=== PATIENT | male | born 1935 | race Caucasian/White ===

== ENCOUNTER 2017-10-26 06:08 | Day surgery (SDC) | payer MEDICARE ==
[2017-10-26] MEDS ORDERED: NS 1000 ML IV SCH (07:00)
[2017-10-26] MEDS ORDERED: CHLORHEXIDINE GLUCONATE 2 % 1 PACK (2 CLOTHS) TOPICAL SCH (07:00)
[2017-10-26] MEDS ORDERED: ceFAZolin 2 GM PREMIX 50 ML IV SCH (07:00)
[2017-10-26] MEDS ORDERED: MUPIROCIN 2% OINT 1 APPLIC/GM SYR NASAL SCH (07:00)
[2017-10-26] MEDS ORDERED: POVIDONE IODINE 5% (ANTISEPSIS KIT) 4 APPLICATIONS EACH NARE SCH (07:00)
[2017-10-26] MEDS ORDERED: AMLO5TAB2 PO (07:28)
[2017-10-26] MEDS ORDERED: OMEGCAP PO (07:28)
[2017-10-26] MEDS ORDERED: APIX5TAB PO (07:28)
[2017-10-26] MEDS ORDERED: ROSU1TAB8 PO (07:28)
[2017-10-26] MEDS ORDERED: RAPA4CAP PO (07:28)
[2017-10-26] MEDS ORDERED: ISOS60TA PO (07:28)
[2017-10-26] MEDS ORDERED: OMEP40CA2 PO ×2 (07:28)
[2017-10-26] MEDS ORDERED: CENTCHW3 PO (07:28)
[2017-10-26] MEDS ORDERED: CHOL10008 PO (07:28)
[2017-10-26] MEDS ORDERED: BUPR150T3 PO (07:28)
[2017-10-26] MEDS ORDERED: MAGN100T2 PO (07:28)
[2017-10-26] MEDS ORDERED: ASPI1TAB57 PO (07:28)
[2017-10-26] MEDS ORDERED: SAW450CA2 PO (07:28)
[2017-10-26] MEDS ORDERED: VITA200C3 PO (07:28)
[2017-10-26] MEDS ORDERED: DOCU50CA5 PO (07:28)
[2017-10-26] MEDS ORDERED: FEXO15TA PO (07:28)
[2017-10-26] MEDS ORDERED: prevagen PO (07:28)
[2017-10-26] MEDS ORDERED: ALLO300T2 PO (07:28)
[2017-10-26] MEDS ORDERED: ST.300CA PO (07:28)
--- NOTE | 2017-10-26 08:47 | MP ---
cc: BLESSING DAVEY M.D. DATE OF SURGERY 10/26/2017 PREOPERATIVE DIAGNOSIS Repetitive syncope with chronic atrial fibrillation and suspicion for possible arrhythmogenic cause. POSTOPERATIVE DIAGNOSIS Repetitive syncope with chronic atrial fibrillation and suspicion for possible arrhythmogenic cause. PROCEDURE Insertion of insertable loop recorder. DESCRIPTION OF PROCEDURE The patient was brought into the DOC Unit in a fasting state. He was prepped and draped in sterile fashion using 1% lidocaine. A Medtronic insertable loop recorder was inserted without difficulty and Steri-Strips and a dressing were applied. There was no bleeding. DEVICE 500 Luchadores Reveal LINQ model [id number]. Serial number [id number]. The R-wave detected was 0.035 mV. The device is programmed to detect bradycardia, pauses or tachycardia that could be the cause of syncope. PLAN The patient will be discharged home this morning. Blessing Davey MD VEW/SSB /8:34 AM /8:36 AM
== END 2017-10-26 09:17 | disposition home or self-care (01) ==
LOC: HDOC 06:08 → HDIC 06:11 → HDOC 09:00
PROVIDERS: ATTEND Internal Medicine Cardiovascular Disease
DX: R55 Syncope and collapse (principal); I48.2 Chronic atrial fibrillation; I20.9 Angina pectoris, unspecified; I10 Essential (primary) hypertension; R42 Dizziness and giddiness; I65.29 Occlusion and stenosis of unspecified carotid artery; I11.9 Hypertensive heart disease without heart failure; I47.2 Ventricular tachycardia; E78.5 Hyperlipidemia, unspecified; Z79.01 Long term (current) use of anticoagulants
CPT/HCPCS: 33282; C1764; J7030

== ENCOUNTER 2017-12-09 06:57 | Day surgery (SDC) | payer MEDICARE ==
[2017-12-09] VITALS (10 sets, daily range): BP systolic 130–170; BP diastolic 70–95; PULSE 59–92; RESP 18–20; TEMP 97.6–98.6; O2SAT 94–96
[~2017-12-09] VITALS: Ht 182.9 cm; Wt 120.1 kg
[~2017-12-09 06:57] MED LIST: ALLO300T2 PO; AMLO5TAB2 PO; APIX5TAB PO; ASPI1TAB57 PO; BUPR150T3 PO; CENTCHW3 PO; CHOL10008 PO; DOCU50CA5 PO; FEXO15TA PO; ISOS60TA PO; MAGN100T2 PO; OMEGCAP PO; OMEP40CA2 PO; RAPA4CAP PO; ROSU1TAB8 PO; SAW450CA2 PO; ST.300CA PO; VITA200C3 PO; prevagen PO
[2017-12-09 08:37] LABS: PROTHROMBIN TIME - PATIENT 10.1 SEC (9.8-11.6)
[2017-12-09 08:44] LABS: BICARBONATE 26.9 MEQ/L (21.0-32.0); CALCIUM 9.2 MG/DL (8.5-10.1); CREATININE 1.2 MG/DL (0.60-1.30)
[2017-12-09] MEDS ORDERED: SODIUM CHLORID 0.9% 500 ML IV PRN (08:45)
[2017-12-09] MEDS ORDERED: Hold AM Insulin & AM Hypoglycemic medications in diabetic patients PRN (08:45)
[2017-12-09] MEDS ORDERED: NO Heparin, Lovenox, Coumadin at least 12 hours prior to procedure. PRN (08:45)
[2017-12-09] MEDS ORDERED: MUPIROCIN 2% OINT 1 APPLIC/GM SYR NASAL SCH (08:45)
[2017-12-09] MEDS ORDERED: ceFAZolin 2 GM PREMIX 50 ML IV SCH (08:45)
[2017-12-09] MEDS ORDERED: CHLORHEXIDINE GLUCONATE 2 % 1 PACK (2 CLOTHS) TOPICAL SCH (08:45)
[2017-12-09] MEDS ORDERED: CHLORHEXIDINE GLUCONATE 2 % 1 PACK (2 CLOTHS) TOPICAL PRN (08:45)
[2017-12-09] MEDS ORDERED: VANCOMYCIN 1000 MG/NS 250 ML IV SCH ×2 (08:45)
[2017-12-09] MEDS ORDERED: LORazepam 1 MG TAB SL SCH (08:45)
[2017-12-09] MEDS ORDERED: METOPROLOL TARTRATE 25 MG TAB PO PRN (08:45)
[2017-12-09] MEDS ORDERED: POVIDONE IODINE 5% (ANTISEPSIS KIT) 4 APPLICATIONS EACH NARE SCH (08:45)
[2017-12-09] MEDS ORDERED: POVIDONE IODINE 5% (ANTISEPSIS KIT) 4 APPLICATIONS EACH NARE PRN (08:45)
[2017-12-09] MEDS ORDERED: LACTATED RINGER'S 1000 ML IV PRN (08:45)
[2017-12-09] MEDS: NS 1000 ML IV SCH (09:00)
[2017-12-09] MEDS ORDERED: PROPOFOL 200 MG/20 ML AMP IV ONE (12:00)
[2017-12-09] MEDS ORDERED: LIDOCAINE HCL 1% PF 5 ML SYRINGE OTHER ONE (12:00)
[2017-12-09] MEDS ORDERED: MIDAZOLAM HCL 2 MG/2 ML VIAL ONE (16:07)
[2017-12-09] MEDS ORDERED: LIDOCAINE HCL 2% 50 ML VIAL ONE (16:21)
[2017-12-09] MEDS ORDERED: VANCOMYCIN 500 MG VIAL ONE (16:21)
[2017-12-09] MEDS ORDERED: HEPARIN SODIUM - IV 10,000 UNITS/10 ML VIAL ONE (16:23)
[2017-12-09 17:18] LABS: AUTOMATED NEUTROPHIL # 4.1 TH/MM3 (1.8-7.7); BASOPHIL # 0.1 TH/MM3 (0-0.2); BASOPHIL % 0.9 % (0.0-2.0); EOSINOPHIL # 0.3 TH/MM3 (0-0.4); EOSINOPHIL % 5.8 % (0.0-4.0); HEMOGLOBIN 13.8 GM/DL (13.0-17.0); LYMPH % 15.2 % (9.0-44.0); LYMPHOCYTE # 0.9 TH/MM3 (1.0-4.8); MEAN CELL VOLUME 96.2 FL (80.0-100.0); MEAN CORPUSCULAR HEMOGLOBIN 33.2 PG (27.0-34.0); MEAN CORPUSCULAR HGB CONC 34.5 % (32.0-36.0); MEAN PLATELET VOLUME 10.7 FL (7.0-11.0); MONO % 7.7 % (0.0-8.0); MONOCYTE # 0.4 TH/MM3 (0-0.9); NEUT % 70.4 % (16.0-70.0); PLATELET COUNT 109 TH/MM3 (150-450); RED BLOOD COUNT 4.16 MIL/MM3 (4.50-5.90); RED CELL DISTRIBUTION WIDTH 13.8 % (11.6-17.2); WHITE BLOOD COUNT 5.8 TH/MM3 (4.0-11.0)
--- NOTE | 2017-12-09 17:44 | CATHPROC ---
Patient Name: SONAM PEREZ Study #: [id number] Initial MD: Mikki Gu Date of : 1935 Study Date: 12/09/2017 Cardiac Catheterization Report 12/09/2017 5:44:01 PM Financial #: [id number] 1 of 8 Patient Name: SONAM PEREZ Study #: [id number] Initial MD: Mikki Gu Date of : 1935 Study Date: 12/09/2017 Entire Case Report Patient Information Patient Name SONAM PEREZ Date of 1935 Age 81 years Financial # [id number] Gender M AlternateID Lab Number 2 Room Number DC07 Height (in) 60.0 Height (cm) 152.4 BSA 2.12 Weight (lbs) 269.1 Weight (kg) 122.3 Patient Address/Phone Number Home Address [facility] Home Phone Number [phone] [facility] [address] Study Information Study Number Admission Scheduled Start Study Start [id number] Dec 09 2017 6:57AM 12/09/2017 Dec 09 2017 1:28PM [place] [facility] Cardiac Pacer/ICD Admit Source Facility Department Other [facility] - Urinalysis Technician Physician and Clinical Staff Initial Mikki Mohan Associate Accountant Kai CoyneRT(R) Other Anesthesia, FOREIGN SERVICE OFFICER Recorder Ana Mcgarry,RN Recorder Tash Mancilla,KARLENE Scrub Isabella Diallo,RT(R) TECH2 12/09/2017 5:44:01 PM Financial #: [id number] 2 of 8 Patient Name: SONAM PEREZ Study #: [id number] Initial MD: Mikki Gu Date of : 1935 Study Date: 12/09/2017 Equipment Time Sulky Driver Description Size Mfg Part Number Used/Scraped BIOSENSE MCKENZIE [id number] 13:40 SET, TUBING COOLFLOW * Used INC. *[id number] 13:39 COOK/PACER DILATOR SET (MICRA) FR8-12 Used *[id number] WIRE, GUIDE AMPLATZ STIFF [id number] 13:39 COOK/PACER 3MMJ Used 180CM *[id number] 13:39 MEDLINE INDUSTRIES PACK, CCL CUSTOM * Used *[id number] 13:39 MEDLINE PACER ROA, LIMB * 2530 *[id number] Used [id number] 13:39 NAMIC TUBING, HIGH PRESSURE 20" 20" Used *[id number] [id number] 13:39 NAMIC TUBING, HIGH PRESSURE 20" 20" Used *[id number] 13:39 NYCOMED OMNIPAQUE, 300 MG, 50ML 50ML [id number] Used SUTURE, 0 ETHIBOND [CT1] (CX21D), 8pk [id number] 13:39 H[employer]ILTON [employer] BLANKET,WARM AIR CCL * Used *[id number] 13:39 VITATRON MEDTRONIC MONITOR, PACEMAKER\\ICD 07043U Used SYSTEM, TRANS-CATHETER [id number] 13:39 VITATRON MEDTRONIC Used PACING (MICRA) *[id number] Equipment Model, Serial, Lot Number and Expiration Data Description Model Number Serial Number Lot Number Expiration Date SYSTEM, TRANS-CATHETER PACING [id number] 01-20-2019 (MICRA) Insurance Information Insurance Payor Medicare Third Democrat Third Democrat Number [employer] UHCMCR MEDICARE History: Current Medications Medication Dosage/Unit Route Frequency Last Date/Time Taken Beta Vinay Statins (any) ASA Imdur ELIQUIS History: Allergies Allergy Reaction No Known Allergies 12/09/2017 5:44:01 PM Financial #: [id number] Patient Name: SONAM PEREZ Study #: [id number] Initial MD: Mikki Gu Date of : 1935 Study Date: 8 History: Risk Factors Family History of Hypertension Dyslipidemia Premature CAD Yes Yes Yes Prior PCI Prior PCIDate Prior CABG Prior CABGDate Yes 03/28/2010 Yes 08/30/1999 Cerebrovascular Peripheral Artery Chronic Lung On Dialysis Diabetes Disease Disease Disease No No No Yes Yes History: Arrhythmias Selection Items Non-sustained VT History: Other Disease Selection Items Cancer HTN Labs Glucose (mg/dl) BUN (mg/dl) Creatinine (mg/dl) BUN:Creatinine (1:x) 74.00-106.00 7.00-18.00 0.50-1.30 10.00-20.00 123 16 1.2 13.3 Na (meq/l) K (meq/l) Cl (meq/l) CO2 (mmol/L) Ca (mg/dl) 136.00-145.00 3.50-5.10 98.00-107.00 21.00-32.00 8.50-10.10 142 3.8 109 26.9 9.2 PT (sec) PTT (sec) INR (PTT:PT) 9.80-11.60 24.30-30.10 0.90-1.10 10.1 26.4 1 Medication Medication Total Dose (Bolus/Oral) Medication Total Dosage/Unit 2% XYLOCAINE 50 mL HEPARIN 2000 units Medications (Bolus/Oral) Medication Time Given Dosage/Unit Administered By Reason 2% XYLOCAINE 12/09/2017 4:49:24 PM 50 mL Mikki Gu 50 mL 2% XYLOCAINE given in lab by Mikki Gu via Subcutaneous. Ordered by Mikki Gu. HEPARIN 12/09/2017 4:53:18 PM 2000 units Anesthesia, FOREIGN SERVICE OFFICER As per physicians v erbal order 2000 units HEPARIN given in lab by Anesthesia, FOREIGN SERVICE OFFICER via Peripheral IV. Ordered by Mikki Gu. Reas on: As per physicians verbal order. 12/09/2017 5:44:01 PM Financial #: [id number] 4 of 8 Patient Name: SONAM PEREZ Study #: [id number] Initial MD: Mikki Gu Date of : 1935 Study Date: 12/09/2017 Initial Case Assessment Cardiovascular HR NIBP Chest Pain 75 167/86 0 Edema Present Skin color Skin None Normal Warm Dry Circulatory - Right Pulses Dorsalis Pedis 1 Scale (0,1,2,3,4,d) Circulatory - Left Pulses Dorsalis Pedis 1 Scale (0,1,2,3,4,d) Circulatory - Lower Extremities Color Lower Right Color Lower Left Normal Normal Neurological State Oriented to time-place- Alert Moves all extremities person Respiration - General Respiration Rate SpO2 (%) (B/min) 20 100 12/09/2017 5:44:01 PM Financial #: [id number] 5 of 8 Patient Name: SONAM PEREZ Study #: [id number] Initial MD: Mikki Gu Date of : 1935 Study Date: 12/09/2017 Final Case Assessment Cardiovascular HR NIBP 63 155/94 Edema Present Skin color Skin None Normal Warm Dry Circulatory - Right Pulses Dorsalis Pedis 1 Scale (0,1,2,3,4,d) Circulatory - Left Pulses Dorsalis Pedis 1 Scale (0,1,2,3,4,d) Circulatory - Lower Extremities Color Lower Right Color Lower Left Normal Normal Neurological State Oriented to time-place- Alert Moves all extremities person Respiration - General Respiration Rate SpO2 (%) (B/min) 19 100 Chronological Log Time Study Chronological Log 16:15:17 Patient arrived via Bed. 16:15:21 Patient Name, D.O.B, / Armband Verified By R.N. 16:15:24 Consent signed by the physician and the patient and verified by the Urinalysis Technician staff. 16:15:28 Pre-op and post- op instructions given; patient acknowledges understanding of instructions. 16:15:47 Anesthesia at bedside. Assumes care of patient. 16:15:54 Patient has been NPO for More than 6Hrs. 16:16:38 History and physical on the chart. 16:17:32 Verbal Stimulation=2 Physical Stimulation=2 Airway=2 Respiration=2 TOTAL=8. (0=absent, 1=li mited, 2=present) Skin Breakdown- bilateral knee scabbed abrasions right > left. Rt knee also reddened and with f ading bruise 16:18:01 surrounding abrasion scab. 12/09/2017 5:44:01 PM Financial #: [id number] 6 of 8 Patient Name: SONAM PEREZ Study #: [id number] Initial MD: Mikki Gu Date of : 1935 Study Date: 12/09/2017 16:18:57 Patient Warmer Placed on the Table. 16:18:59 Disposable Defibrillator Pads Placed On Patient. 16:19:00 Clarissa Prominences Protected 16:19:01 Disposable Defibrillator Pads Placed On Patient. 16:19:06 A # 20 IV was noted in the Antecubital (right). Grade = 0 0.9%NaCl @ KVO. 16:21:12 Table restraints applied according to hospital policy 16:26:03 A # 20 IV was noted in the Wrist (right). Grade = 0 0.9% NaCl @ KVO Assessment: Initial Case, HR=75 BPM, BODZ=999/86 mmhg, Chest Pain=0, Edema=None, Color=Normal, Skin = Warm, Dry Right Pulses: Andi Ped=1 Left Pulses: Andi Ped=1 16:26:49 Lower Right Extremities: Color=Normal Lower Left Extremities: Color=Normal Neurological: State=Alert, Ox3, ARELLANO Respiration: Resp=20 B/min, EcX7=129 % 16:32:59 Bilateral groins prepped with 2% chlorhexidine, and draped after a 3 minute waiting time. 16:33:43 [facility] Spoke with Kayla in lab about obtaining them. 16:35:19 paged 16:35:50 Dr. Gu notified about CBC. To be drawn in EP lab. 16:42:27 Reference ECG taken 16:45:56 MD arrived. Time Out. Correct patient, procedure, procedure equipment, site and side verified with physicia n present. Time 16:48:36 concurred by MD, individual staff and FOREIGN SERVICE OFFICER. Time Out #2 - Consents verified, patient in correct position, all results are labled and displa yed, safety precautions 16:48:57 taken, antibiotics administered. Time out concurred by MD, individual staff and FOREIGN SERVICE OFFICER in procedu re 16:48:58 Case Start 16:49:24 50 mL 2% XYLOCAINE given in lab by Mikki Gu via Subcutaneous. Ordered by Mikki Gu . 16:49:46 Vascular access was obtained in the Fem Vein (right). 16:51:06 Amplatz wire inserted. Figure 8 suture applied 16:52:15 Dilated with 12, followed by 16 and finally 20. 2000 units HEPARIN given in lab by Anesthesia, FOREIGN SERVICE OFFICER via Peripheral IV. Ordered by Mikki Gu . Reason: As per 16:53:18 physicians verbal order. 16:55:03 A Micra set sheath 28FR advanced into the fem vein (right) using Modified Seldinger techniq ue. 16:55:03 A DILATOR SET (MICRA) FR8-12 was advanced into the Fem Vein (right) using the Modified Seld flakito technique. 16:56:22 A CBC was drawn and sent to lab. 16:58:13 Heparinized drip line connected to the micra sheath. 16:59:32 Micra inserted via Fem Vein (right). 17:06:30 Testing the device. 17:11:05 Catheter(s) removed without difficulty 17:11:17 Sheath removed; pressure applied to access site. 17:14:24 Left chest prepped with 2% chlorhexidine, and draped after a 3 min. waiting time for loop r ecorder removal. 12/09/2017 5:44:01 PM Financial #: [id number] 7 of 8 Patient Name: SONAM PEREZ Study #: [id number] Initial MD: Mikki Gu Date of : 1935 Study Date: 12/09/2017 17:18:25 Surgical Incision Made. 17:19:35 A device was explanted. 17:20:19 The pocket was closed. 17:22:55 Steri-strips and a sterile dressing applied to site. 17:24:01 Case End Assessment: Final Case, HR=63 BPM, EMCI=657/94 mmhg, Edema=None, Color=Normal, Skin = Warm, Dr y Right Pulses: Andi Ped=1 Left Pulses: Andi Ped=1 17:25:08 Lower Right Extremities: Color=Normal Lower Left Extremities: Color=Normal Neurological: State=Alert, Ox3, ARELLANO Respiration: Resp=19 B/min, YjU7=100 % 17:26:00 No case complications noted. 17:26:01 Cine recording checked. 17:26:04 Holding Area notified of successful intervention. Spoke with Jaimie. Pt to go to [facility]. 17:34:19 CICU notified of successful intervention. Spoke with Aidee. 17:35:00 Bedside Report will be given. 17:35:05 Patient moved to stretcher Pt transported to CICU on R/A in stable condition with RN and tech accompanying. Rt groin site soft, dressing dry and 17:37:00 intact. End Study - Contrast Media Used In Study Contrast Total Opened (mL) Total Used (mL) Total Wasted (mL) Unspecified 0 0 0 End Study - Maximum Contrast Load Max Contrast Load (mL) 509.7 End Study - Radiation Exposure Fluoro Time (minutes) 3.0 End Study - Patient Disposition Complications Transferred To Telemetry Bed 12/09/2017 5:44:01 PM Financial #: [id number]
[2017-12-09] MEDS ORDERED: ONDANSETRON HCL 4 MG/2 ML VIAL IV PUSH PRN (17:45)
[2017-12-09] MEDS ORDERED: oxyCODONE/ACETAMINOPHEN 5 MG/325 MG TAB PO PRN ×2 (17:45)
[2017-12-09] MEDS ORDERED: amLODIPine BESYLATE 5 MG TAB PO SCH (17:45)
[2017-12-09] MEDS ORDERED: LIDOCAINE HCL 1% 50 ML VIAL INFIL PRN (17:45)
[2017-12-09] MEDS ORDERED: ATROPINE SULFATE 1 MG/ML VIAL IV PUSH PRN (17:45)
[2017-12-09] MEDS ORDERED: LORazepam 2 MG/ML VIAL IV PUSH PRN (17:45)
[2017-12-09] MEDS ORDERED: SODIUM CHLOR 0.9% 250 ML INJ 250 ML IV PRN (17:45)
[2017-12-09] MEDS ORDERED: BACITRACIN OINT 0.9 GM PKT TOP ONE (17:45)
[2017-12-09] MEDS: DILTIAZEM-CD 240 MG CAP ER PO SCH (20:28)
[2017-12-09] MEDS: APIXABAN 5 MG TABLET PO SCH (20:28)
[2017-12-09] MEDS: PANTOPRAZOLE SOD 40 MG DELAYED RELEASE TAB PO SCH (20:28)
[2017-12-09] MEDS ORDERED: APIXABAN 5 MG TABLET PO SCH (21:00)
[2017-12-10 00:34] VITALS: BP 161/83; PULSE 64; TEMP 98.3; O2SAT 93
[2017-12-10 04:21] VITALS: BP 153/77; PULSE 76; TEMP 98.5; O2SAT 96
[2017-12-10 04:49] VITALS: PULSE 84
--- NOTE | 2017-12-10 05:54 | MB ---
cc: BLESSING CLARK M.D., HANSCY M.D. DATE OF CONSULTATION 12/09/2017 HISTORY OF PRESENT ILLNESS Mr. Moreno is an 81-year-old gentleman with history of atrial fibrillation, coronary artery disease, coronary artery bypass graft, recurrent episodes of syncope and near-syncope referred by Dr. Clark for evaluation for pacer insertion and loop recorder. The chart was reviewed. The patient was evaluated. ALLERGIES None. SOCIAL HISTORY The history is negative for smoking and drinking. FAMILY HISTORY Noncontributory to his current medical condition. MEDICATIONS 1. Adeola 100 mg per day. 2. Allopurinol 300 mg per day. 3. Amlodipine 5 mg per day. 4. Aspirin. 5. Carbilevodopa. 6. Eliquis 5 mg twice a day. 7. Nitro. 8. Prevagen. 9. Lovastatin 20 mg a day. 10. Multivitamin. REVIEW OF SYSTEMS He refers some palpitations and dizziness but no chest pain or chest discomfort. PHYSICAL EXAM GENERAL: Alert, fully oriented. VITAL SIGNS: Blood pressure on evaluation was around 160/80, pulse 190, respiratory rate 20. LUNGS: Ventilated. CARDIOVASCULAR: S1-S2, irregular. No gallop. ABDOMEN: Obese. No mass or bruit. EXTREMITIES: No edema. ELECTROCARDIOGRAM Atrial fibrillation, diffuse ST changes. The rate is controlled. LABORATORY DATA Hemoglobin 13.8, white blood cells 5.8, potassium 3.8, creatinine 1.20. INR 1.0. ASSESSMENT AND RECOMMENDATIONS Mr. Gibson has an over 4.8 second pause on loop recorder. He has atrial fibrillation, heart rate difficult to control. He has episodes of near-syncope associated with those pauses. He is going to need a permanent pacemaker. I discussed the implantation of a Micra with him. It is a leadless pacemaker. The risks, the nature and the benefit of the procedure are clearly stated to him. The risks include pneumothorax, cardiac perforation, stroke and even . The patient understood and agreed to proceed. The procedure will be performed during the hospitalization. Also the loop recorder will be removed. Mikki Gu MD HS/SSB /5:43 PM 5:37 AM
[2017-12-10 06:54] LABS: PROTHROMBIN TIME - PATIENT 10.6 SEC (9.8-11.6)
[2017-12-10] MEDS ORDERED: CEPH-460 PO (08:02)
--- NOTE | 2017-12-10 08:07 | PD.CARD.PN ---
Subjective Subjective Remarks Feels okay. Objective Medications Current Medications Medications (Trade) Dose Ordered Sig/Magaly Route Start Time Stop Time Status Last Admin Miscellaneous Information Hold AM Insulin & ... UNSCH PRN .XX 12/09/17 08:45 12/13/17 08:44 Miscellaneous Information NO Heparin, Loven... UNSCH PRN .XX 12/09/17 08:45 12/13/17 08:44 Sodium Chloride 1,000 ml @ 30 mls/hr Q24H IV 12/09/17 09:00 Cefazolin Sodium/ Dextrose 50 ml @ 100 mls/hr BANQUET [employer] SERVER IV 12/09/17 08:45 12/12/17 08:44 Vancomycin HCl 1000 mg/Sodium Chloride 250 ml @ 250 mls/hr [employer] IV 12/09/17 08:45 12/12/17 08:44 (Ativan) 1 mg [employer] SL 12/09/17 08:45 12/12/17 08:44 (Betadine 5% Antisepsis Kit) 2 applic [employer]ER EACH NARE 12/09/17 08:45 12/12/17 08:44 (Bactroban Nasal 2% Oint) 1 applic [employer] NASAL 12/09/17 08:45 12/12/17 08:44 (Chlorhexidine 2% Cloth) 3 pack [employer] TOPICAL 12/09/17 08:45 12/12/17 08:44 (Percocet 5-325 Mg) 1 tab Q4H PRN PO 12/09/17 17:45 (Percocet 5-325 Mg) 2 tab Q4H PRN PO 12/09/17 17:45 (Ativan Inj) 0.5 mg UNSCH PRN IV PUSH 12/09/17 17:45 12/10/17 17:44 (Atropine Inj) 0.5 mg UNSCH PRN IV PUSH 12/09/17 17:45 Sodium Chloride 250 ml @ 500 mls/hr ONCE PRN IV 12/09/17 17:45 12/10/17 17:44 (Zofran Inj) 4 mg Q4H PRN IV PUSH 12/09/17 17:45 (Xylocaine 1% Inj (50 ml)) 10 ml UNSCH PRN INFIL 12/09/17 17:45 12/10/17 17:44 (Zyloprim) 300 mg DAILY PO 12/10/17 09:00 (Eliquis) 5 mg BID PO 12/09/17 21:00 12/09/17 20:28 (Ecotrin Ec) 81 mg DAILY PO 12/10/17 09:00 (Wellbutrin Sr) 150 mg DAILY PO 12/10/17 09:00 (Vitamin D3) 1,000 units DAILY PO 12/10/17 09:00 (Imdur) 60 mg DAILY PO 12/10/17 09:00 (Claritin) 10 mg DAILY PO 12/10/17 09:00 (Theragran M Tab) 1 tab DAILY PO 12/10/17 09:00 (Protonix) 40 mg BID PO 12/09/17 21:00 12/09/17 20:28 (Lipitor) 40 mg DAILY PO 12/10/17 09:00 (Flomax) 4 mg DAILY PO 12/10/17 09:00 (Vitamin E) 400 units DAILY PO 12/10/17 09:00 (Cardizem Cd) 240 mg DAILY PO 12/09/17 18:00 12/09/17 20:28 Vital Signs / I&O Vital Signs Date Time Temp Pulse Resp B/P (MAP) Pulse Ox O2 Delivery O2 Flow Rate FiO2 12/10/17 04:49 84 12/10/17 04:21 98.5 76 153/77 (102) 96 12/10/17 00:34 98.3 64 161/83 (109) 93 12/09/17 23:30 59 12/09/17 22:00 92 12/09/17 21:00 70 12/09/17 20:00 97.6 59 170/95 (120) 95 12/09/17 20:00 75 12/09/17 19:00 70 12/09/17 18:19 65 12/09/17 18:15 65 20 142/88 (106) 95 12/09/17 18:03 98.6 66 20 140/78 (98) 96 12/09/17 17:45 68 20 130/80 (97) 95 I/O 12/09/17 12/09/17 12/09/1718 12/10/17 12/10/17 07:00 15:00 23:00 07:00 15:00 23:00 Intake Total 240 ml 240 ml Balance 240 ml 240 ml Intake Oral 240 ml 240 ml # Voids 5 Physical Exam GENERAL: Well-nourished, well-developed patient. SKIN: Warm and dry. Groin sites soft with no erythema or drainage. Stitch removed. HEAD: Normocephalic. EYES: No scleral icterus. No injection or drainage. NECK: Supple, trachea midline. No JVD or lymphadenopathy. CARDIOVASCULAR: Regular rate and rhythm without murmurs, gallops, or rubs. RESPIRATORY: Breath sounds equal bilaterally. No accessory muscle use. GASTROINTESTINAL: Abdomen soft, non-tender, nondistended. EXTREMITIES: No cyanosis, or edema. NEUROLOGICAL: Awake, alert, and oriented x 3. Non-focal. Laboratory Laboratory Tests Test 12/09/17 16:50 12/10/17 06:23 White Blood Count 5.8 TH/MM3 Red Blood Count 4.16 MIL/MM3 Hemoglobin 13.8 GM/DL Hematocrit 40.0 % Mean Corpuscular Volume 96.2 FL Mean Corpuscular Hemoglobin 33.2 PG Mean Corpuscular Hemoglobin Concent 34.5 % Red Cell Distribution Width 13.8 % Platelet Count 109 TH/MM3 Mean Platelet Volume 10.7 FL Neutrophils (%) (Auto) 70.4 % Lymphocytes (%) (Auto) 15.2 % Monocytes (%) (Auto) 7.7 % Eosinophils (%) (Auto) 5.8 % Basophils (%) (Auto) 0.9 % Neutrophils # (Auto) 4.1 TH/MM3 Lymphocytes # (Auto) 0.9 TH/MM3 Monocytes # (Auto) 0.4 TH/MM3 Eosinophils # (Auto) 0.3 TH/MM3 Basophils # (Auto) 0.1 TH/MM3 CBC Comment DIFF FINAL Differential Comment Prothrombin Time 10.6 SEC Prothromb Time International Ratio 1.0 RATIO Activated Partial Thromboplast Time 26.8 SEC Assessment and Plan Problem List: (1) Symptomatic bradycardia ICD Codes: R00.1 - Bradycardia, unspecified Plan: 4.8 second pause documented on loop recorder. Stable status post Micra permanent pacemaker implantation. (2) S/P cardiac pacemaker procedure ICD Codes: Z95.0 - Presence of cardiac pacemaker Plan: Pacing appropriately, discharge home, follow-up with Dr. Gu in 2 weeks per my discussion with him. Jacque Blackburn Dec 10, 2017 08:07
[2017-12-10 08:15] VITALS: BP 159/90; PULSE 85; RESP 18; TEMP 98; O2SAT 85
[2017-12-10] MEDS ORDERED: buPROPion HCL 150 MG SUSTAINED RELEASE TAB PO SCH (09:00)
[2017-12-10] MEDS ORDERED: NON-FORMULARY DRUG (Saw Palmetto (Serenoa Repens) 450 MG) PO SCH (09:00)
[2017-12-10] MEDS ORDERED: TAMSULOSIN HCL 0.4 MG CAP PO SCH ×2 (09:00→09:15)
[2017-12-10] MEDS ORDERED: ASPIRIN EC 81 MG TABEC PO SCH (09:00)
[2017-12-10] MEDS ORDERED: ATORVASTATIN 40 MG TAB PO SCH (09:00)
[2017-12-10] MEDS ORDERED: VITAMIN E 400 UNIT CAP PO SCH (09:00)
[2017-12-10] MEDS ORDERED: ISOSORBIDE MONONITRATE 60 MG TAB PO SCH (09:00)
[2017-12-10] MEDS ORDERED: LORATADINE 10 MG TAB PO SCH (09:00)
[2017-12-10] MEDS ORDERED: MULTIVITAMINS/MINERALS THERAPEUTIC TAB PO SCH (09:00)
[2017-12-10] MEDS ORDERED: NON-FORMULARY DRUG (Fish Oil-Cholecalciferol (Omega-3 Fish Oil/Vitamin) 1 CAP) PO SCH (09:00)
[2017-12-10] MEDS ORDERED: CHOLECALCIFEROL (VIT D3) 1000 UNIT TAB PO SCH (09:00)
[2017-12-10] MEDS ORDERED: ALLOPURINOL 300 MG TAB PO SCH (09:00)
[2017-12-10] MEDS: NS 1000 ML IV SCH (09:00)
[2017-12-10] MEDS: DILTIAZEM-CD 240 MG CAP ER PO SCH (09:01)
[2017-12-10] MEDS: PANTOPRAZOLE SOD 40 MG DELAYED RELEASE TAB PO SCH (09:01)
[2017-12-10] MEDS: APIXABAN 5 MG TABLET PO SCH (09:01)
--- NOTE | 2017-12-10 13:35 | MP ---
cc: CATHY DELACRUZ DATE OF SURGERY 12/09/2017 PROCEDURE PERFORMED 1. Single chamber leadless permanent pacemaker insertion 2. Loop recorder removal. INDICATIONS Mr. Gibson is an 81-year-old gentleman with a history of atrial fibrillation, coronary artery disease, coronary bypass grafting, symptomatic bradycardia, episode of near syncope 4.8 seconds pause referred by Dr. Clark for permanent pacemaker insertion. The risks, the nature and the benefit of the procedure are clearly stated to him. The risks include pneumothorax, cardiac perforation, stroke, need for open heart surgery and even . The patient understood and agreed to proceed. PROCEDURE After writing informed consent was obtained, the patient was brought to the EP Lab where he was prepped and draped in the usual sterile fashion. Conscious sedation was initiated and maintained throughout the procedure by anesthesiologist. Once sedation verified, the right inguinal area was anesthetized with 2% Xylocaine. Using modified Seldinger technique, the right femoral vein was cannulated on one occasion and one guidewire was advanced. A stiff Amplatz was advanced all the way to the superior vena cava. Then a centimeter incision was made at the entry point. Then the area was progressively dilated using an 8, 12, 16 and 20 Angolan dilator. Then the myocardial delivery sheath was advanced and placed at the level of the right atrium. Then the dilator was removed and the myocardial image system was advanced at the middle of the right atrium. At that point, the sheath was pulled back all the way to the inferior vena cava. The delivery system elevated was deflected and placed at the septal level. It was subsequently delivered after multiple evaluations. At that point, the threshold and impedance was measured on multiple occasions and there were adequate numbers. Then, a COIN WRAPPING MACHINE OPERATOR showed good contractility of the legs of the device. Subsequently, the was released. After adequate pacing and sensing thresholds obtained, the sheath and the dilator and the delivery system were removed. I did place a 2-0 Ethibond suture at the exit point in a [id number] to prevent back-bleeding. That was tied. Hemostasis was performed. No incident report. At that point, I did proceed with a loop recorder removal. The left parasternal area was anesthetized with 2% Xylocaine. Using a #11 scalpel, an 11 centimeter incision was made. Subsequently, the loop was removed. The area was copiously irrigated using antibiotic solution. The border was reapproximated using Dermabond and Steri-Strips. No incident report. The patient tolerated procedure. Blood loss minimal. 1. Implanted Hardware: The implanted permanent pacemaker is a Medtronic model number [id number], serial number [id number]. 2. Threshold: The right ventricular pacing threshold in the bipolar mode was at 0.88 volts at 0.24 milliseconds. Lead impedance 160 ohms, R-wave at 11.5 mV. 3. Setting: The device set in a VVI 60 for now. Further decision about rate response by Dr. Clark. 4. Explanted hardware: The explanted loop recorder is a Medtronic serial number [id number]. CONCLUSION Successful permanent pacemaker insertion, successful loop recorder removal. COMMENT AND RECOMMENDATIONS The patient is going to be transferred to the telemetry unit. He will be observed and when stable can be discharged home. MD JAMES Rubin/VERÓNICA /5:38 PM /1:21 PM
--- NOTE | 2017-12-10 22:05 | EKG ---
Date Performed: 12/10/2017 Time Performed: 03:16:58 PTAGE: 81 years EKG: Atrial fibrillation PVC Possible inferior infarct - age undetermined Lateral ST-T changes a re nonspecific Abnormal ECG PREVIOUS TRACING : 12/09/2017 08.15 Since previous tracing, no significant change noted DOCTOR: Nate Giordano Interpretating Date/Time 12/10/2017 22:03:17
--- NOTE | 2017-12-10 23:27 | EKG ---
Date Performed: 12/09/2017 Time Performed: 08:15:04 PTAGE: 81 years EKG: Atrial fibrillation. Possible inferior infarct - age undetermined Abnormal ECG PREVIOUS TRACING : 03/02/2007 05.35 Compared to previous tracing Afib is new DOCTOR: Nate Giordano Interpretating Date/Time 12/10/2017 23:25:29
== END 2017-12-10 10:34 | disposition home or self-care (01) ==
LOC: HDOC 06:57 → HDIC 06:58 → HCIS 17:49 → HDOC 12-10 10:34
PROVIDERS: ATTEND Internal Medicine Cardiovascular Disease
DX: R00.1 Bradycardia, unspecified (principal); I47.2 Ventricular tachycardia; I11.9 Hypertensive heart disease without heart failure; I65.29 Occlusion and stenosis of unspecified carotid artery; E78.5 Hyperlipidemia, unspecified; I25.810 Atherosclerosis of coronary artery bypass graft(s) without angina pectoris; G47.30 Sleep apnea, unspecified; E11.9 Type 2 diabetes mellitus without complications; R42 Dizziness and giddiness; Z86.73 Personal history of transient ischemic attack (TIA), and cerebral infarction without residual deficits; Z82.49 Family history of ischemic heart disease and other diseases of the circulatory system; Z79.01 Long term (current) use of anticoagulants; Z79.82 Long term (current) use of aspirin; Z00.6 Encounter for examination for normal comparison and control in clinical research program
CPT/HCPCS: 00530; 0387T; 33284; 80048; 85025; 85610; 85730; 86850; 86900; 86901; 93005; C1786; J1644; J2250; J3010; J3370